=== PATIENT | male | born 2005 | race Caucasian/White ===

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

== ENCOUNTER 2024-01-05 08:45 | Outpatient (RCR) | payer BC, SELFPAY | END 2024-03-08 09:38 | disposition home or self-care (01) | PROVIDERS: Visit Provider Orthopaedic Surgery | DX: Z98.890 Other specified postprocedural states (principal); Z51.89 Encounter for other specified aftercare | CPT/HCPCS: 97110; 97112; 97116; 97140; 97161; 97530 ==

== ENCOUNTER 2024-08-08 06:42 | Day surgery (SDC) | payer BC, SELFPAY ==
--- OUTSIDE RECORDS SUMMARY | 2024-07-31 09:53 | XMS_ITS | Continuity of Care Document ---
Author Organization [facility] Address [facility] [address] [place] [address]- Care Team Providers Care Intelligence Applications Name Role Phone Lonny Sweeney MD Primary Care Physician Encounter 05/30/18 - 06/01/[address] [place], [place] [address] Encounter Diagnosis Community acquired pneumonia(Discharge Diagnosis) - 05/30/18 Attending Physician: Johan Lopes MD Allergies, Adverse Reactions, Alerts No Known Medication Allergies Assessment and Plan Extracted from: Title:cough, pna-azith Author:Marco A Lopes MD Date:05/30/18 Community acquired pneumonia (J18.9) Physical exams consistent with an atypical pneumonia. Will treat with azithromycin as below. Return to clinic if symptoms are not improving. Orders: azithromycin, See Instructions, Instructions: 11 mL Oral daily on Day 1 then 5.5 mL oral daily on Days -5, # 33 mL, 0 Refill(s), Type: Acute, Pharmacy: [id number], 11 mL Oral daily on Day 1 then 5.5 mL oral daily on Days -5, (Ordered) Immunizations Given and Recorded Vaccine Date Status Refusal Reason influenza 05/18/18 Recorded human papillomavirus vaccine 03/30/18 Given meningococcal conjugate vaccine 03/25/16 Given tetanus/diphth/pertuss (Tdap) adult/adol 03/25/16 Given influenza (LAIV) 1 04/26/12 Given influenza (LAIV) 2 04/17/10 Given influenza (LAIV) 3 04/04/09 Given influenza (LAIV) 4 04/10/08 Given influenza, H1N1, inactivated 5 07/09/09 Given DTaP 6 04/04/09 Given DTaP 07/01/05 Recorded DTaP 04 Recorded DTaP 04 Recorded DTaP 04 Recorded IPV 7 04/04/09 Given IPV 04 Recorded IPV 04 Recorded IPV 04 Recorded MMR (measles/mumps/rubella) 8 04/04/09 Given MMR (measles/mumps/rubella) 07/01/05 Recorded varicella 9 04/10/08 Given varicella 03/30/05 Recorded influenza virus vaccine, inactivated 10 06/25/07 G iven Hep A, pediatric/adolescent 11 06/25/07 Given Hep A, pediatric/adolescent 12 03/29/06 Given Hib (HbOC) 03/30/05 Recorded Hib (HbOC) 04 Recorded Hib (HbOC) 04 Recorded Hep B 03/30/05 Recorded Hep B 04 Recorded Hep B 04 Recorded pneumococcal (PCV7) 03/30/05 Recorded pneumococcal (PCV7) 04 Recorded pneumococcal (PCV7) 04 Recorded pneumococcal (PCV7) 04 Recorded 1Result Comment: Unknown Unit of Measure: UNKNOWNUNIT 2Result Comment: Unknown Unit of Measure: UNKNOWNUNIT 3Result Comment: Unknown Unit of Measure: UNKNOWNUNIT 4Result Comment: Unknown Unit of Measure: UNKNOWNUNIT 5Result Comment: Unknown Unit of Measure: UNKNOWNUNIT 6Result Comment: Unknown Unit of Measure: UNKNOWNUNIT 7Result Comment: Unknown Unit of Measure: UNKNOWNUNIT 8Result Comment: Unknown Unit of Measure: UNKNOWNUNIT 9Result Comment: Unknown Unit of Measure: UNKNOWNUNIT 10Result Comment: Unknown Unit of Measure: UNKNOWNUNIT 11Result Comment: Unknown Unit of Measure: UNKNOWNUNIT 12Result Comment: Unknown Unit of Measure: UNKNOWNUNIT Medications azithromycin 200 mg/5 mL oral liquid See Instructions, Instructions: 11 mL Oral daily on Day 1 then 5.5 mL oral daily on Days -5, # 33 mL, 0 Refill(s), Type: Acute, Pharmacy: [id number], 11 mL Oral daily on Day 1 then 5.5 mL oral daily on Days -5 Start Date: 05/30/18 Stop Date: 06/04/18 Status: Ordered Problem List Diagnosis Diagnosis Type Effective Dates Health Status Cl inical Service Informant Community acquired pneumonia Discharge Diagnosis 05/30/18 Procedures Procedure Date Related Diagnosis Body Site Status Adenoidectomy Completed Vital Signs Most recent to oldest [Reference Range]: 1 Weight Measured 94.4 lb (05/30/18 9:38 AM) Temperature Temporal [96.8-100.4 DegF] 9 8.4 DegF (05/30/18 9:38 AM) Apical Heart Rate [55-90 bpm] 79 bpm (05/30/18 9:38 AM) Oxygen Saturation [94-100 %] 97 % (05/30/18 9:38 AM) Allergies Verified? Yes (05/30/18 9:38 AM) Medication History Verified? Yes (05/30/18 9:38 AM) Social History Social History Type Response Smoking Status Never smoker; Concer ns about tobacco use in household: No entered on: 06/08/16
--- OUTSIDE RECORDS SUMMARY | 2024-07-31 09:53 | XMS_ITS | Continuity of Care Document ---
Author Organization [facility] Address [address] [place] [address]- Care Team Providers Care Field Operations Farm Manager Name Role Phone Johan Lopes MD Primary Care Physician Encounter 10/05/23 - 10/07/[address] [place], [place] [address] Encounter Diagnosis Ankle fracture, right(Discharge Diagnosis) - 10/05/23 Preop examination(Discharge Diagnosis) - 10/05/23 Factor V Leiden(Discharge Diagnosis) - 10/05/23 Attending Physician: Del Toscano MD Referring Physician: Del Toscano MD Allergies, Adverse Reactions, Alerts Substance Criticality Severity Reaction Reaction Severity Status penicillin High criticality Moderate rash Ac tive Immunizations Given and Recorded Vaccine Date Status Refusal Reason meningococcal group B vaccine 10/02/20 Given meningococcal conjugate vaccine 10/02/20 Given meningococcal conjugate vaccine 03/25/16 Given human papillomavirus vaccine 04/03/19 Given human papillomavirus vaccine 03/30/18 Given influenza 05/18/18 Recorded influenza 07/01/05 Recorded influenza 05/25/05 Recorded tetanus/diphth/pertuss (Tdap) adult/adol 03/25/16 Given tetanus/diphth/pertuss (Tdap) adult/adol 06/21/15 Recorded influenza (LAIV) 06/25/15 Recorded influenza (LAIV) 1 04/26/12 Given influenza (LAIV) 2 04/17/10 Given influenza (LAIV) 3 04/04/09 Given influenza (LAIV) 4 04/10/08 Given influenza, H1N1, inactivated 08/30/09 Recorded influenza, H1N1, inactivated 5 07/09/09 Given DTaP [...] Given Hep A, pediatric/adolescent 12 03/29/06 Given Hep B 03/30/05 Recorded Hep B 04 Recorded Hep B 04 Recorded Hib (HbOC) 03/30/05 Recorded Hib (HbOC) 04 Recorded Hib (HbOC) 04 Recorded pneumococcal (PCV7) 03/30/05 Recorded pneumococcal [...] Comment: Unknown Unit of Measure: UNKNOWNUNIT Medications diclofenac sodium 75 mg oral delayed release tablet = 1 tab(s) ( 75 mg ), Oral, bid, # 180 tab(s), 0 Refill(s), Type: Maintenance Start Date: 10/05/23 Status: Ordered Problem List Condition Confirmation Course Effective Dates Status Health St atus Informant Factor V Leiden Confirmed Active Diagnosis Diagnosis Type Effective Dates Health Status Clinical Service Informant Ankle fracture, right Discharge Diagnosis 10/05/23 Non-Specified Preop examination Discharge Diagnosis 10/05/23 Non-Specified Factor V Leiden Discharge Diagnosis 10/05/23 Non-Specified Procedures Procedure Date Related Diagnosis Body Site Status Adenoidectomy Completed Vital Signs Most recent to oldest [Reference Range]: 1 Height Measured 72.75 in (10/05/23 2:24 PM) Weight Measured 199.2 lb (10/05/23 2:24 PM) Body Mass Index 26.46 kg/m2 (10/05/23 2:24 PM) BSA 2.15 m2 (10/05/23 2:24 PM) Blood Pressure [90-120/60-80 mmHg] 122/6 4mmHg *HI* (10/05/23 2:24 PM) Mean Arterial Pressure 83 mmHg (10/05/23 2:24 PM) Allergies Verified? Yes (10/05/23 2:24 PM) Medication History Verified? Yes (10/05/23 2:24 PM) Weight Percentile 100.00 % 1 (10/05/23 2:24 PM) Weight Z-score 4.12 2 (10/05/23 2:24 PM) Height/Length Percentile 0.00 % 3 (10/05/23 2:24 PM) Height/Length Z-score -13.59 4 (10/05/23 2:24 PM) Body Mass Index Percentile 83.70 % 5 (10/05/23 2:24 PM) Body Mass Index Z-score 0.98 6 (10/05/23 2:24 PM) 1Result Comment: ^~:!Percentile Source -CDC 2Result Comment: ^~:!ZScore Source -CDC 3Result Comment: ^~:!Percentile Source -CDC 4Result Comment: ^~:!ZScore Source -CDC 5Result Comment: ^~:!Percentile Source -CDC 6Result Comment: ^~:!ZScore Source -CDC Social History Social History Type Response Smoking Status Never (less than 100 in lifetime) entered on: 03/30/23 Sex Male Pediatrics Note * Del Toscano MD: PERFORM Event Display: Pediatrics Note Authored Date: [id number] CYNTHIA CALLOWAY Address: [address] [place] [address] [address] [place] [address] Phone:[phone] Sex:Male :[address] [facility]:[id number] Location:[facility] Date of Service:10/05/2023 PCP: Johan Lopes MD ?? PreOperative Physical and Clearance ?? Accompanied by??mom ?? Diagnosis: Right Ankle fracture Planned Procedure: repair Hospital/Location: [facility] Date of Surgery: 07 Oct 2023 Surgeon:??Jacinto ?? Cynthia is a 18, with a history of an injury to his ankle resulting in fracture. ?? The patient has??a history of anesthesia.??Prior??adenoidectomy ?? Allergies and medications are noted below. Past medical history is noted. ??Specifically there is?? no ??history of repiratory issues.? no history of bleeding issues. HAS DIAGNOSIS OF FACTOR V LEIDEN no??history of cardiac issues.? There is??no family history of anesthesia problems, specifically?? no??history of malignant hyperthermia. ? Procedure historyProcedures ?Adenoidectomy? Any positive review of systems is??indicated above, otherwise it is negativeAllergies ?penicillin ? Severity: Moderate?Medications?*denotes recorded medication ?*diclofenac sodium 75 mg oral delayed release tablet: 75 mg, 1 tab(s), Oral, bid, 180 tab(s), 0 Refill(s). ? Problem List?Factor V Leiden? Past med history??Blood disorder Migraine??Family History ?Allergy (Grandmother (M)) ?Allergy (Mother) ?Bleeding disorder (Grandmother (M)) ?Bleeding disorder (Mother) ?Depression (Grandmother (P)) ?Depression (Sister) ?Diabetes mellitus type 1 (Grandmother (P)) ?Diabetes.. (Grandfather (M)) ?High blood pressure (Mother) ?High blood pressure (Grandmother (M)) ?High blood pressure (Grandfather (M)) ?High cholesterol (Grandfather (M)) ?Migraine (Grandmother (M)) ?Migraine (Mother) ? Social history? Electronic Cigarette/Vaping Assessment ? Electronic Cigarette Use: Never. ? Tobacco Assessment ? Never (less than 100 in lifetime) ? Home and Environment Assessment ? Living situation: adequate housing-yes. ??Alcohol abuse in household: No. ??Substance abuse in household: No. ?Smoker in household: No. ??Feels unsafe at home: No. ? Nutrition and Health Assessment ? Obtaining food is a problem: No. ? Other Assessment ? well and reverse osmosis water source, no fluoride supplement? Exam Vital signs??:?Vital Signs ?BP:?H 122/64?Measurements:?Height: 72.75 in?Weight: 199.2 lb?BMI: 26.46?BSA: 2.15? Alert.?? Interactive. Eyes normal Nose normal Mouth clear Heart normal Lungs??clear ? Review and ResultsResults??(Last 30 days) No results located.? Impression and Plan ?? Preop Examination and Clearance -Low risk for anesthesia complication -Cleared per day of procedure evaluation by anesthesia team ?? Diagnosis for this visit ?Ankle fracture, right (S82.891A) ?Preop examination (Z01.818) ?Factor V Leiden (D68.51) ? Lab testing??not needed no significant changes ?? The visit and interview was conducted with the patient and the Patient???s mother. ?? Patient and parental questions addressed as able. ?? Electronically Signed on 10/05/2023 02:37 PM Del Toscano MD Patient Care team information Care Team Personnel Name: Johan Lopes MD Position: EMR Provider Access (Peds) Member Role: Primary Care Physician Address: Address: [address] P: F: [place] [address]- [place] Family History Name: UnknownRelationship: Mother Condition State Severity Life Cycle Status Age at Onset Allergy POSITIVE High blood pressure POSITIVE Migraine POSITIVE Bleeding disorder POSITIVE Name: UnknownRelationship: Sister Condition State Severity Life Cycle Status Age at Onset Depression POSITIVE Name: UnknownRelationship: Grandmother (M) Condition State Severity Life Cycle Status Age at Onset Migraine POSITIVE Allergy POSITIVE Bleeding disorder POSITIVE High blood pressure POSITIVE Name: UnknownRelationship: Grandfather (M) Condition State Severity Life Cycle Status Age at Onset High blood pressure POSITIVE Diabetes.. POSITIVE High cholesterol POSITIVE Name: UnknownRelationship: Grandmother (P) Condition State Severity Life Cycle Status Age at Onset Diabetes mellitus type 1 POSITIVE Depression POSITIVE
--- OUTSIDE RECORDS SUMMARY | 2024-07-31 09:53 | XMS_ITS | Continuity of Care Document ---
Author Organization [facility] Address [facility] [address] [place] [address]- Care Team Providers Care Automotive Glass Technician Name Role Phone Johan Lopes MD Primary Care Physician Encounter 04/03/19 - 04/05/[address] [place], [place] [address] Encounter Diagnosis Well child check(Discharge Diagnosis) - 04/03/19 Immunization due(Discharge Diagnosis) - 04/03/19 Depression screen(Discharge Diagnosis) - 04/03/19 Body mass index 5th to < 85th percentile, pediatric(Discharge Diagnosis) - 04/03/19 Slow height gain(Discharge Diagnosis) - 04/03/19 Attending Physician: Johan Lopes MD Allergies, Adverse Reactions, Alerts No Known Medication Allergies Assessment and Plan Extracted from: Title:14yr [facility] Author:Johan Lopes MD Date: 04/03/19 Impression and Plan Patient is a 14-year-old male who presents to clinic for a well-child check. Patient continues to have slow growth velocity. Last year, bone age was demonstrated to be delayed. Growth projection with corrected bone age predicted the patient would be at the 50th percentile for height. Patient has not yet started his growth spurt. As a result, we will investigate further with growth hormone levels, TSH, ESR, and celiac screen. Diagnosis Immunization due (WFC88-XX Z23). Body mass index 5th to < 85th percentile, pediatric (ZXX83-KH Z68.52). Slow height gain (NJL92-LE R62.52). Well child check (TGK75-YI Z00.129). Depression screen (NRN89-MP Z13.31). Course: Progressing as expected. Plan: Referral to dentist., Recheck in 1 year for well check., Discussed recommended vaccines with parent/patient including HPV, including benefits and possible side effects, VIS offered. Diet: Age appropriate diet, BMI discussed. Counseled on healthy diet and physical activity recommendations.. Course: Progressing as expected. Anticipatory Guidance: Adolescence (11 - 21 years): Hobbies, Peer relations, School performance, Substance abuse, Sports injuries, Seatbelts/ airbags, Nutrition/ oral health ( Balanced meals, Nutritious snacks ). Immunizations Given and Recorded Vaccine Date Status Refusal Reason human papillomavirus vaccine 04/03/19 Given human papillomavirus vaccine 03/30/18 Given influenza 05/18/18 Recorded meningococcal conjugate vaccine 03/25/16 Given tetanus/diphth/pertuss (Tdap) [...] Given Hep A, pediatric/adolescent 12 03/29/06 Given pneumococcal (PCV7) 03/30/05 Recorded pneumococcal (PCV7) 04 Recorded pneumococcal (PCV7) 04 Recorded pneumococcal (PCV7) 04 Recorded Hep B 03/30/05 Recorded Hep B 04 Recorded Hep B 04 Recorded Hib (HbOC) 03/30/05 Recorded Hib (HbOC) 04 Recorded Hib (HbOC) 04 Recorded 1Result Comment: Unknown Unit of [...] 12Result Comment: Unknown Unit of Measure: UNKNOWNUNIT Problem List Diagnosis Diagnosis Type Effective Dates Health Status Clinical Service Informant Immunization due Discharge Diagnosis 04/03/19 Body mass index 5th to < 85th percentile, pediatric Discharge Diagnosis 04/03/19 Slow height gain Discharge Diagnosis 04/03/19 Well child check Discharge Diagnosis 04/03/19 Depression screen Discharge Diagnosis 04/03/19 Procedures Procedure Date Related Diagnosis Body Site Status Collection of venous blood b y venipuncture 04/03/19 Completed Adenoidectomy Completed Results Most recent to oldest [Reference Range]: 1 TSH+Free T4 Reference Lab (04/03/19 4:28 PM) IGF-1 Reference Lab (04/03/19 4:28 PM) IGF-BP3 Reference Lab (04/03/19 4:28 PM) Sed Rate [0-20 mm] 1 mm (04/03/19 4:28 PM) Celiac Ped Screen w Reflex Reference Lab (04/03/19 4:28 PM) Vital Signs Most recent to oldest [Reference Range]: 1 Height Measured 62.25 in (04/03/19 3:59 PM) Weight Measured 108.2 lb (04/03/19 3:59 PM) Body Mass Index 19.63 kg/m2 (04/03/19 3:59 PM) BSA 1.47 m2 (04/03/19 3:59 PM) Blood Pressure [90-138/45-84 mmHg] 111/7 0mmHg (04/03/19 3:59 PM) Mean Arterial Pressure 84 mmHg (04/03/19 3:59 PM) Allergies Verified? Yes (04/03/19 3:59 PM) Medication History Verified? Yes (8/26/19 3:59 PM) Social History Social History Type Response Smoking Status Never (less than 100 in lifetime); Concerns about tobacco use in household: No entered on: 04/03/19
--- OUTSIDE RECORDS SUMMARY | 2024-07-31 09:54 | XMS_ITS | Continuity of Care Document ---
Author Organization [facility] Address [facility] [address] [place] [address]- Care Team Providers Care Media Senior Recruiter Name Role Phone Lonny Sweeney MD Primary Care Physician Encounter 06/08/18 - 06/10/[address] [place], [place] [address] Encounter Diagnosis Community acquired pneumonia(Discharge Diagnosis) - 06/10/18 Attending Physician: Johan Lopes MD Allergies, Adverse Reactions, Alerts No Known Medication Allergies Assessment and Plan Extracted from: Title:Improving pna Author:Johan Lopes MD ate:06/08/18 Community acquired pneumonia (J18.9) Respiratory exam is stable, clear and is consistent with an improving pneumonia. Advised treating with humidified air, warm liquids, and honey. Advise azithromycin will remain effective for a full 10 days. Return to clinic if symptoms are not improving in 5-7 days or sooner if they worsen. Immunizations Given and Recorded Vaccine Date Status [...] Service Informant Community acquired pneumonia Discharge Diagnosis 06/10/18 Procedures Procedure Date Related Diagnosis Body Site Status Adenoidectomy Completed Vital Signs Most recent to oldest [Reference Range]: 1 Temperature Temporal [96.8-100.4 DegF] 9 7.4 DegF (06/08/18 4:03 PM) Oxygen Saturation [94-100 %] 97 % (06/08/18 4:03 PM) Allergies Verified? Yes (06/08/18 4:03 PM) Social History Social History Type Response Smoking Status Never smoker; Concer ns about tobacco use in household: No entered on: 06/08/16
--- OUTSIDE RECORDS SUMMARY | 2024-07-31 09:54 | XMS_ITS | Continuity of Care Document ---
Author Organization [facility] Address [facility] [address] [place] [address]- Care Team Providers Care Polygraph Technician Name Role Phone Lonny Sweeney MD Primary Care Physician [phone] Encounter 06/08/18 - 06/10/[address] [place], [place] [address] Encounter Diagnosis Community acquired pneumonia(Discharge Diagnosis) - [...]
--- OUTSIDE RECORDS SUMMARY | 2024-07-31 09:54 | XMS_ITS | Continuity of Care Document ---
Author Organization [facility] Address [facility] [address] [place] [address]- Care Team Providers Care Prison Teacher Name Role Phone Johan Lopes MD Primary Care Physician Encounter 08/08/20 - 08/10/[address] [place], [place] [address] Encounter Diagnosis WCC (well child check)(Discharge Diagnosis) - 08/08/20 Immunization due(Discharge Diagnosis) - 08/08/20 Depression screen(Discharge Diagnosis) - 08/08/20 Attending Physician: Ken Valdez MD Referring Physician: Ken Valdez MD Allergies, Adverse Reactions, Alerts No Known Medication Allergies Assessment and Plan Extracted from: Title:15 year well. Author:Ken Valdez MD Kenrick e:08/08/20 1. WCC (well child check) (Z00.129) Anticipatory guidance: BMI reviewed. Reviewed healthful diet to include dairy, meat, fruits and vegetables. Reinforced health benefits of physical activity. Addressed healthful sleep habits. Addressed digestive health. Follow up with Dentistry. Return for yearly well exam. Ordered: 23650 screening test pure tone air only (Charge), Quantity: 1, WCC (well child check) 62021 periodic preventive med est patient 12-17yrs (Charge), Quantity: 1, WCC (well child check) Immunization due Depression screen 2. Immunization due (Z23) return for menactra and men B Ordered: 32868 periodic preventive med est patient 12-17yrs (Charge), Quantity: 1, WCC (well child check) Immunization due Depression screen Miscellaneous Order (Request), FUTURE ORDER return for menactra and men B 3. Depression screen (Z13.31) Reviewed screening results. No additional needs identified. Ordered: 80307 behav assmt w/score & docd/stand instrument (Charge), Quantity: 1, Depression screen 31768 periodic preventive med est patient 12-17yrs (Charge), Quantity: 1, WCC (well child check) Immunization due Depression screen Functional Status 08/08/20 Recent Travel History No recent travel Family Member Travel History No recent t ravel Other Exposure to Infectious Disease Unk nown Immunizations Given and Recorded Vaccine Date Status [...] Clinical Service Informant Immunization due Discharge Diagnosis 08/08/20 WCC (well child check) Discharge Diagnosis 08/08/20 Depression screen Discharge Diagnosis 08/08/20 Procedures Procedure Date Related Diagnosis Body Site Status Adenoidectomy Completed Vital Signs Most recent to oldest [Reference Range]: 1 Height Measured 67.75 in (08/08/20 2:35 PM) Weight Measured 139.2 lb (08/08/20 2:35 PM) Body Mass Index 21.32 kg/m2 (08/08/20 2:35 PM) BSA 1.74 m2 (08/08/20 2:35 PM) Blood Pressure [90-138/45-84 mmHg] 118/7 0mmHg (08/08/20 2:35 PM) Mean Arterial Pressure 86 mmHg (08/08/20 2:35 PM) Allergies Verified? Yes (08/08/20 2:35 PM) Medication History Verified? Yes (08/08/20 2:35 PM) Medical History Verified? Yes (08/08/20 2:35 PM) Social History Social History Type Response Smoking Status Never (less than 100 in lifetime) entered on: 08/08/20 Sex Male
--- OUTSIDE RECORDS SUMMARY | 2024-07-31 09:54 | XMS_ITS | Continuity of Care Document ---
Author Organization [facility] Address [address] [place] [address]- Care Team Providers Care Laborer Hide House Name Role Phone Johan Lopes MD Primary Care Physician Encounter 10/02/20 - 10/04/[address] [place], [place] [address] Encounter Diagnosis Immunization due(Discharge Diagnosis) - 10/02/20 Attending Physician: Johan Lopes MD Referring Physician: Johan Lopes MD Allergies, Adverse Reactions, Alerts No Known Medication Allergies Immunizations Given and Recorded Vaccine Date Status Refusal Reason meningococcal group B vaccine 10/02/20 Given meningococcal conjugate vaccine 10/02/20 Given meningococcal conjugate vaccine 03/25/16 Given human papillomavirus vaccine 04/03/19 Given human papillomavirus vaccine 03/30/18 Given influenza 05/18/18 Recorded tetanus/diphth/pertuss (Tdap) adult/adol 03/25/16 Given influenza (LAIV) [...] Clinical Service Informant Immunization due Discharge Diagnosis 10/02/20 Procedures Procedure Date Related Diagnosis Body Site Status Adenoidectomy Completed Social History Social History Type Response Smoking Status Never (less than 100 in lifetime) entered on: 08/08/20 Sex Male
--- OUTSIDE RECORDS SUMMARY | 2024-07-31 09:54 | XMS_ITS | Continuity of Care Document ---
Author Organization [facility] Address [address] [place] [address]- Care Team Providers Care Kitman Name Role Phone Lonny Sweeney MD Primary Care Physician Encounter(s) 03/30/18 [facility] [address] [facility]. [address] [place], [place] [address] Encounter Diagnosis Immunization due(Discharge Diagnosis) - 03/30/18 WCC (well child check)(Discharge Diagnosis) - 03/30/18 Body mass index 5th to < 85th percentile, pediatric(Discharge Diagnosis) - 03/30/18 Depression screen(Discharge Diagnosis) - 03/30/18 Attending Physician: Johan Lopes MD 07/20/17 - 07/22/17 [facility] [address] [facility] [address] [place], [place] [address] Encounter Diagnosis Cough(Discharge Diagnosis) - 07/20/17 Attending Physician: Carmen Daniel MD Allergies, Adverse Reactions, Alerts No Known Medication Allergies Assessment and Plan Extracted from: Title:cough Author:Carmen Daniel MD Date:09/20/16 1. Cough Discussed the differential diagnosis of a prolonged cough without other significant symptoms, which can include a series of intercurrent viral URIs, secondary bacterial infection, (OM or sinusitis) or bronchospasm. Additional causes include allergy or GERD Treatment discussed RTC PRN any constitutional symptoms (fever, malaise, night sweats or weight loss) for further evaluation Extracted from: Title:viral uri, cough Author:Marco A Lopes MD Date:06/08/16 Viral upper respiratory infe ction Cough and congestion are consistent with a viral upper respiratory infection. No evidence of acute otitis media or pneumonia noted on physical exam. Plan: Honey, humidified air for cough. May use acetaminophen or ibuprofen for elevated temperatures and discomfort. Return to clinic if patient develops persistent cough or fevers. Extracted from: Title:AAA 10-12 year [facility] Author:Avery Sweeney MD Date:03/25/16 Impression and Plan Diagnosis Well child check (UKP04-KN Z00.129). Plan: Immunizations per schedule. Diet: Age appropriate diet, Referral to dentist, Discussed activity, screen time, sleep and good nutrition. Discussed importance of these relative to patient's BMI., Discussed puberty and growth., Regular Dental visits recommended.. Immunizations Given and Recorded Vaccine Date Status Refusal Reason meningococcal conjugate vaccine 03/25/16 Given tetanus/diphth/pertuss (Tdap) [...] Effective Dates Health Status Clinical Service Informant Well child check Discharge Diagnosis 03/25/16 Non-Specified Well child check Discharge Diagnosis 03/25/16 Immunization due Discharge Diagnosis 03/25/16 Body mass index 5th to < 85th percentile, pediatric Discharge Diagnosis 03/25/16 Cough Discharge Diagnosis 07/03/16 Non-Specified Sinusitis Discharge Diagnosis 07/03/16 Non-Specified Depression screen Discharge Diagnosis 03/30/18 WCC (well child check) Discharge Diagnosis 03/30/18 Immunization due Discharge Diagnosis 03/30/18 Body mass index 5th to < 85th percentile, pediatric Discharge Diagnosis 03/30/18 Viral upper respiratory infection Discharge Diagnosis 06/08/16 Cough Discharge Diagnosis 07/20/17 Routine child exam Discharge Diagnosis 04/03/14 Procedures Procedure Date Related Diagnosis Body Site Status Adenoidectomy Completed Vital Signs Most recent to oldest [Reference Range]: 1 2 3 Height Measured 60.25 in (03/30/18 2:06 PM) 59.5 in (07/20/17 8:58 AM) 57 in (06/08/16 3:59 PM) Weight Measured 97.2 lb (03/30/18 2:06 PM) 93.2 lb (07/20/17 8:58 AM) 79.2 lb (06/08/16 3:59 PM) Body Mass Index 18.82 kg/m2 (03/30/18 2:06 PM) 18.51 kg/m2 (07/20/17 8:58 AM) 17.14 kg/m2 (06/08/16 3:59 PM) BSA 1.37 m2 (03/30/18 2:06 PM) 1.33 m2 (07/20/17 8:58 AM) 1.2 m2 (06/08/16 3:59 PM) Temperature Temporal [96.8-100.4 DegF] 98.3 DegF (07/03/16 11:01 AM) Blood Pressure [90-138/45-84 mmHg] 108/72mmHg (03/30/18 2:06 PM) Blood Pressure [77-126/40-81 mmHg] 118/74mmHg (03/25/16 1:36 PM) 103/63mmHg (04/03/14 2:05 PM) Mean Arterial Pressure 84 mmHg (03/30/18 2:06 PM) 89 mmHg (03/25/16 1:36 PM) 76 mmHg (04/03/14 2:05 PM) Peripheral Pulse Rate [55-90 bpm] 71 bpm (03/30/18 2:06 PM) 78 bpm (04/03/14 2:05 PM) Oxygen Saturation [94-100 %] 97 % (07/20/17 8:58 AM) 97 % (07/03/16 11:01 AM) 98 % (06/08/16 3:59 PM) Allergies Verified? Yes (03/30/18 2:06 PM) Yes (07/20/17 8:58 AM) Yes (03/25/16 1:36 PM) Medication History Verified? Yes (03/30/18 2:06 PM) Yes (07/20/17 8:58 AM) Yes (03/25/16 1:36 PM) Social History Social History Type Response Smoking Status Never smoker; Concer ns about tobacco use in household: No entered on: 06/08/16
--- OUTSIDE RECORDS SUMMARY | 2024-07-31 09:54 | XMS_ITS | Continuity of Care Document ---
Author Organization [facility] Address [facility] [address] [place] [address]- Care Team Providers Care Truck Rental Manager Name Role Phone Lonny Sweeney MD Primary Care Physician Encounter 03/30/18 - 04/01/[address] [place], [place] [address] Encounter Diagnosis Immunization due(Discharge Diagnosis) - 03/30/18 WCC (well child check)(Discharge Diagnosis) - 03/30/18 Body mass index 5th to < 85th percentile, pediatric(Discharge Diagnosis) - 03/30/18 Depression screen(Discharge Diagnosis) - 03/30/18 Delayed linear growth(Discharge Diagnosis) - 03/30/18 Attending Physician: Johan Lopes MD Allergies, Adverse Reactions, Alerts No Known Medication Allergies Assessment and Plan Extracted from: Title:13yr WCC, slow growth Author:Johan Lopes MD Date:03/30/18 Impression and Plan Patient is in the 9th percentile for growth. Mean parental height estimation falls on the 75th percentile. Given discordance, will obtain a bone age. Diagnosis Immunization due (MJJ24-GN Z23). WCC (well child check) (DAQ38-TY Z00.129). Body mass index 5th to < 85th percentile, pediatric (BSQ92-LG Z68.52). Depression screen (SLQ24-HF Z13.89). Delayed linear growth (ISV20-YG R62.52). Course: Progressing as expected. Plan: Referral to dentist., Recheck in 1 year for well check., Discussed recommended vaccines with parent/patient including HPV, including benefits and possible side effects, VIS offered. Diet: Age appropriate diet, BMI discussed. Counseled on healthy diet and physical activity recommendations.. Course: Progressing as expected. Anticipatory Guidance: Adolescence (11 - 21 years): Hobbies, Peer relations, School performance, Sports injuries, Seatbelts/ airbags, Nutrition/ oral health ( Balanced meals, Nutritious snacks ). Immunizations Given and Recorded Vaccine Date Status Refusal Reason human papillomavirus vaccine 03/30/18 Given meningococcal conjugate [...] Effective Dates Health Status Clinical Service Informant Delayed linear growth Discharge Diagnosis 03/30/18 Depression screen Discharge Diagnosis 03/30/18 WCC (well child check) Discharge Diagnosis 03/30/18 Immunization due Discharge Diagnosis 03/30/18 Body mass index 5th to < 85th percentile, pediatric Discharge Diagnosis 03/30/18 Procedures Procedure Date Related Diagnosis Body Site Status Adenoidectomy Completed Vital Signs Most recent to oldest [Reference Range]: 1 Height Measured 60.25 in (03/30/18 2:06 PM) Weight Measured 97.2 lb (03/30/18 2:06 PM) Body Mass Index 18.82 kg/m2 (03/30/18 2:06 PM) BSA 1.37 m2 (03/30/18 2:06 PM) Blood Pressure [90-138/45-84 mmHg] 108/7 2mmHg (03/30/18 2:06 PM) Mean Arterial Pressure 84 mmHg (03/30/18 2:06 PM) Peripheral Pulse Rate [55-90 bpm] 71 bpm (03/30/18 2:06 PM) Allergies Verified? Yes (03/30/18 2:06 PM) Medication History Verified? Yes (03/30/18 2:06 PM) Social History Social History Type Response Smoking Status Never smoker; Concer ns about tobacco use in household: No entered on: 06/08/16
--- OUTSIDE RECORDS SUMMARY | 2024-07-31 09:54 | XMS_ITS | Continuity of Care Document ---
Author Organization [facility] Address [id number] [place] [address]- Care Team Providers Care Manufacturer Representative Name Role Phone Lonny Sweeney MD Primary Care Physician Encounter 10/14/18 - 10/16/[address] [place], [place] [address] Encounter Diagnosis Sorethroat(Discharge Diagnosis) - 10/14/18 Allergies, Adverse Reactions, Alerts No Known Medication [...] Comment: Unknown Unit of Measure: UNKNOWNUNIT Medications amoxicillin 400 mg/5 mL oral liquid = 15 mL ( 1,200 mg ), po, daily, x 10 day(s), # 150 mL, 0 Refill(s), Type: Acute, Pharmacy: [id number], 15 mL Oral daily,x10 day(s) Start Date: 10/15/18 Stop Date: 10/25/18 Status: Ordered Problem List Diagnosis Diagnosis Type Effective Dates Health Status Clini diana Service Informant Sorethroat Discharge Diagnosis 10/14/18 Procedures Procedure Date Related Diagnosis Body Site Status Adenoidectomy Completed Results Most recent to oldest [Reference Range]: 1 Culture Throat Presum Pos GABS *ABN* (10/14/18 9:51 AM) Strep ID [Negative] Negative (10/14/18 9:51 AM) Vital Signs Most recent to oldest [Reference Range]: 1 Weight Measured 93.8 lb (10/14/18 9:37 AM) Allergies Verified? Yes (10/14/18 9:40 AM) Social History Social History Type Response Smoking Status Never smoker; Concer ns about tobacco use in household: No entered on: 06/08/16
--- OUTSIDE RECORDS SUMMARY | 2024-07-31 09:54 | XMS_ITS | Continuity of Care Document ---
Author Organization [facility] Address [address] [place] [address]- Care Team Providers Care Recycler Forklift Driver Truck Driver Name Role Phone Johan Lopes MD Primary Care Physician Encounter 10/05/23 - 10/07/[address] [place], [place] [address] Encounter Diagnosis Ankle fracture, right(Discharge Diagnosis) [...] PERFORM Event Display: Pediatrics Note Authored Date: [id number] CYNTHIA CALLOWAY Address: [address] [place] [address] [facility] [place] [address] Phone:[phone] Sex:Male :2005 [facility]AD[facility]:[id number] Location:[facility] Date of Service:10/05/2023 PCP: Johan Lopes MD ?? PreOperative Physical and Clearance ?? Accompanied by??mom ?? Diagnosis: Right Ankle fracture Planned Procedure: repair Hospital/Location: [facility] Date of Surgery: 07 Oct 2023 [...] Member Role: Primary Care Physician Address: Address: [address] P: [place]: [place] [address]- [place] Family History Name: UnknownRelationship: Mother Condition State Severity Life Cycle Status Age at Onset High blood pressure POSITIVE Bleeding disorder POSITIVE Allergy POSITIVE Migraine POSITIVE Name: UnknownRelationship: Sister Condition State Severity Life Cycle Status Age at Onset Depression POSITIVE Name: UnknownRelationship: Grandmother (M) Condition State Severity Life Cycle Status Age at Onset Allergy POSITIVE High blood pressure POSITIVE Bleeding disorder POSITIVE Migraine POSITIVE Name: UnknownRelationship: Grandfather (M) Condition State Severity Life Cycle Status Age at Onset High blood pressure POSITIVE High cholesterol POSITIVE Diabetes.. POSITIVE Name: UnknownRelationship: Grandmother (P) Condition State Severity Life Cycle Status Age at Onset Diabetes mellitus type 1 POSITIVE Depression POSITIVE
--- OUTSIDE RECORDS SUMMARY | 2024-07-31 09:54 | XMS_ITS | Continuity of Care Document ---
Author Organization [facility] Address [facility] [address] [place] [address]- Care Team Providers Care Dispensary Technician Name Role Phone Johan Lopes MD Primary Care Physician Encounter 03/30/23 - 04/01/23 [facility] [address] [facility]. [address] [place] [address]- Encounter Diagnosis Pharyngitis(Discharge Diagnosis) - 03/30/23 Attending Physician: Rupinder Gordillo MD Referring Physician: Rupinder Gordillo MD Allergies, Adverse Reactions, Alerts Substance Reaction Severity Status penicillin rash Moderate Active Assessment and Plan Extracted from: Title:Pharyngitis, rapid strep negative Author:Rupinder Resendez MD Date:03/30/23 1. Pharyngitis (J02.9) Rapid strep negative. Advised family that if PCR positive, will call, plan for cefprozil 250 mg tablet 1.5 tabs PO BID x 10 days. If negative, most likely viral etiology, exam reassuring against dehydration. Recommended symptomatic management including acetaminophen/ibuprofen for fever or discomfort as appropriate for age, encouraging fluid intake and rest. If throat sore, can use honey or cool beverages. Discussed reasons to return to care including inability to keep self hydrated, increased work of breathing, daily fever lasting >4-5 days, or development of new and concerning symptoms. Parent expressed agreement with this plan. Ordered: .Streptococcus Group A PCR, Specimen Type: Throat, Collected, 03/30/23 14:36:00 CDT by Rupinder Gordillo MD, Routine collect, Lab Collect, Pharyngitis [id number] office o/p est low 20-29 min (Charge), Quantity: 1, Pharyngitis Strep A Screen (SPA), Specimen Type: Throat, 03/30/23 14:36:00 CDT by Duy DE LA FUENTE, Rupinder Arellano, Routine collect, Lab Collect, Pharyngitis Immunizations Given and Recorded Vaccine Date Status [...] Dates Health Status Clini diana Service Informant Pharyngitis Discharge Diagnosis 03/30/23 Non-Specified Procedures Procedure Date Related Diagnosis Body Site Status Adenoidectomy Completed Results Laboratory List Name Date Strep A Screen (SPA) 03/30/23 .Streptococcus Group A PCR 03/30/23 Most recent to oldest [Reference Range]: 1 Strep A Screen [Negative] Negative (03/30/23 2:37 PM) Strep Gp A PCR [Negative] Negative (03/30/23 2:37 PM) Strep Gp A PCR Interp Group A Streptococ cus target DNA not detected *NA* (03/30/23 2:37 PM) Vital Signs Most recent to oldest [Reference Range]: 1 Height Measured 71.25 in (03/30/23 2:20 PM) Weight Measured 191.2 lb (03/30/23 2:20 PM) Body Mass Index 26.48 kg/m2 (03/30/23 2:20 PM) BSA 2.09 m2 (03/30/23 2:20 PM) Allergies Verified? Yes (03/30/23 2:20 PM) Medication History Verified? Yes (03/30/23 2:20 PM) Weight Percentile 100.00 % 1 (03/30/23 2:20 PM) Weight Z-score 3.95 2 (03/30/23 2:20 PM) Height/Length Percentile 0.00 % 3 (03/30/23 2:20 PM) Height/Length Z-score -13.54 4 (03/30/23 2:20 PM) Body Mass Index Percentile 85.59 % 5 (03/30/23 2:20 PM) Body Mass Index Z-score 1.06 6 (03/30/23 2:20 PM) 1Result Comment: ^~:!Percentile Source -[facility] 2Result Comment: ^~:!ZScore Source -[facility] 3Result Comment: ^~:!Percentile Source -[facility] 4Result Comment: ^~:!ZScore Source [facility] 5Result Comment: ^~:!Percentile Source [facility] 6Result Comment: ^~:!ZScore Source -[facility] Social History Social History Type Response Smoking Status Never (less than 100 in lifetime) entered on: 03/30/23 Sex Male Pediatrics Note * Duy DE LA FUENTE, Rupinder Arellano: PERFORM Event Display: Pediatrics Note Authored Date: [id number] PRAVEEN CALLOWAY Address: [address] [place], [place] [id number] Phone:[phone] Sex:Male :2005 Location:[facility] [place] Date of Service:03/30/2023 PCP: Johan Lopes MD Chief Complaint Room C with mom, sore throat, headache and stomach ache History of Present Illness Praveen is a 18-year-old male who presents with his mother for evaluation of sore throat. ?? Praveen was working up in [place] and developed a sore throat yesterday. It is painful, preventing himfrom eating and drinking, and accompanied by an all- over headache. He has been nauseous, but has not vomited. Ibuprofen has improved his symptoms when he took it. Due to his discomfort and concern for strep, his mother drove up to bring him back to be tested. ?? He has no known sick contacts and no recent exposures to insects. He continues to urinate normally, he has had no rash. Review of Systems As above in HPI. Physical Exam Vitals & Measurements HT:??71.25??in?? WT:??191.2??lb?? BMI:??26.48?? General: Alert, well-appearing, normal affect. Eyes: EOMI grossly, conjunctiva clear bilaterally without drainage Ears:?? normal TMs bilaterally, normal external ears Mouth: oral mucosa moist, oropharynx mildly erythematous, tonsillar hypertrophy without exudate Neck: supple, no lymphadenopathy Lungs: clear to auscultation bilaterally Heart: regular rate and rhythm, no m/r/g Skin: no rash on exposed skin Assessment/Plan 1.??Pharyngitis??(J02.9) Rapid strep negative. Advised family that if PCR positive, will call, plan for??cefprozil??250 mg tablet 1.5 tabs PO??BID x 10 days.??If negative, most likely viral etiology, exam reassuring against dehydration. Recommended symptomatic management including acetaminophen/ibuprofen for fever or discomfort as appropriate for age, encouraging fluid intake and rest. If throat sore, can use honey or cool beverages. Discussed reasons to return to care including inability to keep self hydrated, increased work of breathing, daily fever lasting >4-5 days, or development of new and concerning symptoms. Parent expressed agreement with this plan.?? Ordered: .Streptococcus Group A PCR, Specimen Type: Throat, Collected, 03/30/23 14:36:00 CDT by Rupinder Gordillo MD, Routine collect, Lab Collect, Pharyngitis [id number] office o/p est low 20-29 min (Charge), Quantity: 1, Pharyngitis Strep A Screen (SPA), Specimen Type: Throat, 03/30/23 14:36:00 CDT by Rupinder Gordillo MD, Routine collect, Lab Collect, Pharyngitis ?? Problem List/Past Medical History Historical Blood disorder Migraine Procedure/Surgical History ???Adenoidectomy Allergies penicillin (Moderate)??rash Social History Electronic Cigarette/Vaping E-Cigarette Use:Never Home/Environment Living situation:adequate housing-yes Alcohol abuse in household:No Substance abuse in household:No Smoker in household:No Feels unsafe at home:No Nutrition/Health Obtaining food is a problem:No Other Additional information:well and reverse osmosis water source, no fluoride supplement Tobacco Use:Never (less than 100 in lifetime) Family History Allergy: Mother and Grandmother (M). Bleeding disorder: Mother and Grandmother (M). Depression: Sister and Grandmother (P). Diabetes mellitus type 1: Grandmother (P). Diabetes..: Grandfather (M). High blood pressure: Mother, Grandfather (M) and Grandmother (M). High cholesterol: Grandfather (M). Migraine: Mother and Grandmother (M). Lab Results Lab Results (Last 4 results within 60 days)?? Strep A Screen: Negative (03/30/23 14:37:00) Electronically Signed on 03/30/2023 03:46 PM Rupinder Gordillo MD Patient Care team information Care Team Personnel Name: Johan Lopes MD Position: EMR Provider Access (Peds) Member Role: Primary Care Physician Address: Address: [address] P: F: [place]EL[place] Bon[place] [address] Family History Name: UnknownRelationship: Mother Condition State Severity Life Cycle Status Age at Onset Bleeding disorder POSITIVE High blood pressure POSITIVE Allergy POSITIVE Migraine POSITIVE Name: UnknownRelationship: Sister Condition State Severity Life Cycle Status Age at Onset Depression POSITIVE Name: UnknownRelationship: Grandmother (M) Condition State Severity Life Cycle Status Age at Onset Allergy POSITIVE Bleeding disorder POSITIVE Migraine POSITIVE High blood pressure POSITIVE Name: UnknownRelationship: Grandfather (M) Condition State Severity Life Cycle Status Age at Onset High cholesterol POSITIVE Diabetes.. POSITIVE High blood pressure POSITIVE Name: UnknownRelationship: Grandmother (P) Condition State Severity Life Cycle Status Age at Onset Diabetes mellitus type 1 POSITIVE Depression POSITIVE
[2024-08-08] VITALS (8 sets, daily range): BP systolic 126–146; BP diastolic 64–83; PULSE 57–83; RESP 16; TEMP 36.7–36.8; O2SAT 98–100; BMI 25.7
[2024-08-08] MEDS: BUPIVACAINE 0.5 %/EPI 1:200K INJECTION (07:45)
[2024-08-08] MEDS: LIDOCAINE 1%-EPI 1:100,000 20 ML INFILTRATI (07:45)
--- NOTE | 2024-08-08 07:50 | CRLHL7_ITS ---
For Patients: As a result of the Century Cures Act, medical imaging exams and procedure reports are released immediately into your electronic medical record. You may view this report before your referring provider. If you have questions, please contact your health care provider. Indication: Screw removal Technique: Four fluoroscopic images of the right ankle. Fluoroscopic time 3.8 seconds. Comparison: 07/12/2024 IMPRESSION: Fluoroscopic guidance for removal of 1 of the distal fibular screws. Dictated by Dharmesh Limon MD @ 08/08/2024 12:25:12 PM (Electronically Signed)
--- NOTE | 2024-08-08 07:59 | PM.ORPRC ---
Procedure Note Date of procedure: 08/08/24 Procedure: PREOPERATIVE DIAGNOSIS: Right ankle fracture ORIF with retained hardware POSTOPERATIVE DIAGNOSIS: Right ankle fracture ORIF with retained hardware SURGEON: Wolf Casey MD GREEN CHAIN OPERATOR: VARUN Flores NAME OF OPERATION: Hardware removal deep ANESTHESIA: Local ESTIMATED BLOOD LOSS: 1 mL COMPLICATIONS: None SPECIMENS: None DRAINS: None PREOPERATIVE ANTIBIOTICS: None INDICATIONS: The patient is a 19-year-old who sustained an ankle fracture. ORIF was completed previously. They present today for elective distal interlocking screw removal. The risks, benefits and expected outcomes were discussed in detail. These included but were not limited to: Infection, bleeding, injury to blood vessel or nerve, venous thromboembolism. All questions were answered to their satisfaction. Use of an compounding assistant was necessary throughout the case for patient positioning and safety, soft tissue retraction and closure. PROCEDURE: The patient was placed supine on the operating room table. The lower extremity was prepped and draped in the usual sterile fashion. Local anesthesia was administered. We utilized our previously placed incision for the anterior to posterior distal interlocking screw and opened it longitudinally. Subcutaneous dissection was bluntly taken to the screw head which was fully exposed. The screw was removed intact, without complication. The image intensifier was used to obtain an AP, mortise and lateral view of the ankle, showing the screw has been removed. The wound was irrigated with normal saline. The compounding assistant closed soft tissue with a 3-0 Vicryl deep and a 3-0 Monocryl subcuticular. The compounding assistant placed a soft dressing. Sponge and needle counts were correct x 2. The patient tolerated the procedure well. There were no apparent complications. They were carefully transferred to the hospital bed and taken to the postanesthesia care unit in satisfactory condition. PLAN: The patient will be discharged to home. They may weightbear as tolerates. Ice, ibuprofen and Tylenol will be used as needed for pain. They will follow up in the office in 2 weeks for a wound check.
== END 2024-08-08 08:10 | disposition home or self-care (01) ==
LOC: OR 06:45
PROVIDERS: Visit Provider Orthopaedic Surgery
PROC: (CPT 20680; principal; 2024-08-08 08:00)
DX: Z47.2 Encounter for removal of internal fixation device (principal)
CPT/HCPCS: 20680; 73610; 76000; J3490

== ENCOUNTER 2025-08-01 18:48 | Emergency (ER) | payer BC, SELFPAY ==
--- OUTSIDE RECORDS SUMMARY | 2010-08-11 02:00 | XMS_ITS | Continuity of Care Document ---
Author Organization [facility] Address [address] [address] [place] [address] Phone Care Team Providers Care Child'S Nurse Name Role Phone Prashanth DE LA FUENTE, Unavailable Unavailable Allergies, Adverse Reactions, Alerts Substance Reaction Status Criticality No Known allergies Medications Medication Instructions Dosage Effective Dates (start - stop) Status Comments Chewable Multi Vitamin Tab take 1 by Oral route every day - Active Procedures Procedure Date Offic/outpt E&m New Mod-hi Routine Serum Collection [id number] Results Test Name Date and Time Measure Units Reference Range Abnormal Flag Status Comments Panel Description: Glia(IgG/A)+IgA+T-STREETER Final Immunoglobulin A, Qn, Serum 07:35:00 119 mg/dL 27-195 Final Performed by:Clifford Bullock (1) Deamidated Gliadin Abs, IgA 13:22:00 2 units 0-19 Final Negative 0 - 1 9 Weak Positive 20 - 30 Moderate to Strong Positive >30Performed by:BN (2) Deamidated Gliadin Abs, IgG 13:22:00 3 units 0-19 Final Negative 0 - 1 9 Weak Positive 20 - 30 Moderate to Strong Positive >30Performed by:BN (2) t-Transglutaminas e (tTG) IgA 12:10:00 <2 U/mL 0-3 Final Negative 0 - 3 Weak Positive 4 - 10 Positive >10 . Tissue Transglutaminase (tTG) has been identified as the endomysial antigen. Studies have demonstr- ated that endomysial IgA antibodies have over 99% specificity for gluten sensitive enteropathy.Perfor med by:BN (2) Advance Directives Directive Yes / No Effective Date File Name Resuscitation Not Answered N/A N/A Life Support Not Answered N/A N/A Intubation Not Answered N/A N/A Antibiotics Not Answered N/A N/A IV Fluid Support Not Answered N/A N/A Tube Feed Not Answered N/A N/A Other Directive N/A N/A WARNING:The information contained in this section is historical and is provided for information only and does not constitute a legal document or any assurance that the information is still accurate. Please verify the information with the perez of the legal document before using it for clinical purposes. Encounters Encounter Description Practice Location Reason(s) For Visit Diagnoses Date Provider Providers Copied on Encounter Offic/outpt E&m New Mod-[facility] [address] [address], [place], [place], [id number], [place] tel:[phone] [facility] Abdominal pain (chief complaint) Abd Pain GeneralizedDiarrhea 1 Prashanth DE LA FUENTE . [address] [facility] [address], [place], [place], [id number] , [place]. tel:[phone] Referring Provider: Referral Self, USE FOR SELF REFERRALS. Family History Family Member Type Diagnosis Age At Onset Maternal grandfather Problem (finding) diverticulitis of colon First degree family history Problem (finding) No history of Crohn's Maternal grandfather Problem (finding) Maternal history of diabetes mellitus First degree family history Problem (finding) No Family history of No history of Colon Polyps First degree family history Problem (finding) No history of Ulcerative Colitis Maternal grandfather Problem (finding) GERD First degree family history Problem (finding) No history of Colon Rectal Cancer Payers Payer name Insurance type Covered democrat ID Authoriza tion(s) No Information Social History Type Description Quantity Date Captured Comments Alcohol Use Details Unknown Caffeine Use Details Unknown Tobacco Use Status No Information Smoking Status No Information Sex Male Chief Complaint And Reason For Visit From encounter dated '08/11/2010 08:00'. Abdominal pain (chief complaint) Reason For Referral Reason For Referral No Information History Of Present Illness Encounter Date Complaint History Of Prese nt Illness No Information Functional Status Date Functional Assessmen t No Information Instructions Date Instruction Additional Infor mation No Information Assessments Type Assessment Date No Information Patient Care Teams Name Effective Dates (start - stop) Status Members No Information
--- OUTSIDE RECORDS SUMMARY | 2025-08-01 18:50 | XMS_ITS | Clinical Summary ---
Author Organization [facility] Address [address] [place] [address] Care Team Providers Care Para Machine Operator Name Role Phone Pcp, No Primary Care Provider Unavailabl e Allergies Active AllergyReactionsCriticalityNoted OyxgSanobatjCxtihdkjobePstb40/10/2022 Medications MedicationSigDispense QuantityRefillsLast FilledStart DateEnd DateStatus benzonatate (TESSALON) 200 mg capsule Indications:Sore throatTake 1 Capsule (200 mg) by mouth 3 times daily if needed for Cough. 21 Capsule 3Active albuterol HFA (PRO-AIR; VENTOLIN; PROVENTIL) 90 mcg/actuation inhaler Indications:Acute coughInhale 1-2 Puffs by mouth every 4 hours if needed for Shortness Of Breath or Wheezing. 1 Each 5Active benzonatate (TESSALON) 200 mg capsule Indications:Acute coughTake 1 Capsule (200 mg) by mouth 3 times daily if needed for Cough. 21 Capsule 5Active azithromycin 250 mg tablet Indications:Cough, unspecified typeTake 500 mg (2 tabs) by mouth on day 1, then 250 mg (1 tab) daily for days 2-5. 6 Tablet 5Active predniSONE (DELTASONE) 10 mg tablet Indications:Cough, unspecified typeTake 3 Tablets (30 mg) by mouth once daily with a meal for 2 days, THEN 2 Tablets (20 mg) once daily with a meal for 2 days, THEN 1 Tablet (10 mg) once daily with a meal for 2 days. 12 Tablet /12/2024ExpiredHospital, Clinic, or Other Facility Administered MedicationOrdered DoseRouteFrequencyStart DateEnd DateStatus dexAMETHasone 10 mg/mL injection 10 mg Indications:Laryngitis, acute10 mgOralONE TIME5109/02/2024Ended Active Problems No known active problems Encounters DateTypeDepartmentCare XmctMezufmzkgxt85/29/2025 11:10 AM CSTOffice Visit [facility] [address] [place] [phone] Alondra Eisenberg NP Cough (was seen on 07/03 in and since has lost his voice, will cough so hard he vomits./x 2 weeks. )07/07/20253382Bxrbtl74/25/2025 3:00 PM CSTAncillary Procedure [address] [phone] 07/03/2025 2:30 PM CSTOffice Visit [facility] [address] [place] [phone] Yael Whitley NP Cough (1 week ); loss of voice (Yesterday )07/03/2025Telephone [facility] [address] [place] [phone] Yael Whitley NP Medication Management (benzonatate (TESSALON) 200 mg capsule)07/03/2025Telephone [facility] [address] [place] [phone] Yael Whitley NP Results (spoke with praveen and his mom to give x ray results. pt verbalized understanding and had nofurther questions. was made aware of medications sent in to pharmacy. )07/03/2025Travelfrom Last 3 Months Social History Tobacco UseTypesPacks/DayYears UsedDateSmoking Tobacco: NeverPassive Smoke Exposure: NeverSmokeless Tobacco: Never Tobacco Cessation:Counseling Given: Not Answered Sex and Gender InformationValueDate RecordedSex Assigned at BirthNot on file Legal DcpLvyx2908/15/2020 5:52 PM CSTGender IdentityNot on fileSexual Orientation Not on file Last Filed Vital Signs Vital SignReadingTime TakenCommentsBlood Dmuehqwv830/6607/07/2025 11:22 AM CULINARY ASSISTANT Ebpqg943007/07/2025 11:22 AM JULWbkclwmtkbd41.8 ??C (98.3 ??F)07/07/2025 11:22 AM CSTRespiratory Anrd940009/06/2024 11:22 AM CSTOxygen Uaidoqbptm86%07/07/2025 11:22 AM CSTInhaled Oxygen Concentration--Gpsfqs02 kg (194 lb)07/07/2025 11:22 AM CULINARY ASSISTANT Height--Body Mass Index-- Plan of Treatment Health MaintenanceDue DateLast DoneCommentsTetanus liffpqn8303/26/2015Depression screening for age 12+2016HIV for age 15-HPV series for age 9- 45 (1 - Male 3-dose series)2019Meningococcal series for age 11-21 (1 - 2- dose series)2020BMI (ht and wt on same day) for age 18+2022Hepatitis C screening for age 18-7903/26/2022Hepatitis B series for 19+ (1 of 3 - 19+ 3- dose series)3COVID-19 vaccine series ( - 2024- season)2025 Influenza Vaccine (#1)2025Pneumococcal series for age 6-49Aged OutNo longer eligible based on patient's age to complete this topic Procedures Procedure NamePriorityDate/TimeAssociated DiagnosisCommentsXR CHEST 2 VIEWS PA AND FYBNKZFNNXP24/25/2025 3:03 PM CULINARY ASSISTANT Acute cough from Last 3 Months Results * XR CHEST 2 VIEWS PA AND LATERAL (07/03/2025 3:03 PM CULINARY ASSISTANT)Anatomical Region LateralityModalityCHEST, THORAX, Lung, HEARTComputed RadiographySpecimen (Source)Anatomical Location / LateralityCollection Method / VolumeCollection TimeReceived Time07/03/2025 3:20 PM CULINARY ASSISTANT Narrative 07/03/2025 3:20 PM CULINARY ASSISTANT For Patients: As a result of the Cures Act, medical imaging exams and procedure reports are released immediately into your electronic medical record. You may view this report before your referring provider. If you have questions, please contact your health care provider. Indication: Acute cough Technique: Chest 2 views Comparison: None Findings/Impression: Cardiovascular and mediastinum: ??Heart size and vasculature are normal in caliber and appearance. ??Mediastinum is within normal limits. Lungs and pleural spaces: ??Lungs are clear. ??No sign of infiltrate or mass. ??No sign of pleural effusion. ??No pneumothorax. Mild bronchial wall thickening which can be seen in bronchitis or reactive airways disease. Bones and soft tissues: ??Moderate gastric distention. Dictated by Roman Figueroa MD @ 07/03/2025 3:20:39 PM (Electronically Signed) Procedure Note Roman Figueroa MD - 07/03/2025 For Patients: As a result of the Cures Act, medical imagingexams and procedure reports are released immediately into your electronicmedical record. You may view this report before your referring provider.If you have questions, please contact your health care provider. Indication: Acute cough Technique: Chest 2 views Comparison: None Findings/Impression: Cardiovascular and mediastinum: Heart size and vasculature are normal incaliber and appearance. Mediastinum is within normal limits. Lungs and pleural spaces: Lungs are clear. No sign of infiltrate ormass. No sign of pleural effusion. No pneumothorax. Mild bronchial wallthickening which can be seen in bronchitis or reactive airways disease. Bones and soft tissues: Moderate gastric distention. Dictated by Roman Figueroa MD @ 07/03/2025 3:20:39 PM (Electronically Signed) Authorizing ProviderResult TypeResult StatusGrmarcelo Whitley NPGENERAL IMAGING Final Result from Last 3 Months Insurance * Guarantor: Linda Lerner TypeRelation to PatientDate of BirthPhone Billing AddressPersonal/VshgrkNujn[address] [place] [address] * Guarantor: Neli Lerner TypeRelation to PatientDate of PhoneBilling AddressPersonal/SwvszuZfpgnj93/30/1976 [address] [facility] [place] [address] Care Teams Team MemberRelationshipSpecialtyStart DateEnd Date PcpAshlyn PCP - General08/18/21
[2025-08-01 19:13] VITALS: BP 135/83; PULSE 90; RESP 18; TEMP 36.7; O2SAT 99; BMI 26.4
--- NOTE | 2025-08-01 22:02 | CRLHL7_ITS ---
For Patients: As a result of the Century Cures Act, medical imaging exams and procedure reports are released immediately into your electronic medical record. You may view this report before your referring provider. If you have questions, please contact your health care provider. INDICATION: Pulmonary embolism (PE) suspected. Cough and hemoptysis with history of factor 5 Leiden. TECHNIQUE: CT chest PE was acquired with 95 cc Isovue 370 IV contrast. Multiplanar reformats performed including 3D MIP reconstructions. COMPARISON: Chest x-ray 07/03/2025. FINDINGS: Heart and vasculature: No pulmonary embolism identified. Main pulmonary artery is normal in caliber. No thoracic aortic aneurysm. Mild cardiomegaly. No pericardial effusion. No CT evidence of acute right heart strain. Lungs and pleura: No focal consolidation. No pleural effusion or pneumothorax. Mild bronchial wall thickening. Lymph nodes/mediastinum: No suspicious lymphadenopathy. Chest wall: No suspicious chest wall mass or fluid collection. Upper abdomen: No acute abnormality. Bones: No acute abnormality. IMPRESSION: 1. No pulmonary embolism. 2. Mild cardiomegaly. 3. Mild bronchial wall thickening may reflect sequelae of nonspecific infectious/inflammatory process. Please note that all CT scans at this facility use dose modulation, iterative reconstruction, and/or weight-based dosing when appropriate to reduce radiation dose to as low as reasonably achievable. Dictated by Ford Bailey MD @ 08/01/2025 11:21:40 PM (Electronically Signed)
--- NOTE | 2025-08-01 22:30 | ED_ITS ---
HPI - General Adult General Date Seen: 08/01/25 Chief complaint: Unspecified Complaint, Adult Stated complaint: throwing up blood Time Seen by Provider: 08/01/25 21:53 Source: patient Mode of arrival: ambulatory Limitations: no limitations History of Present Illness HPI narrative: Patient is a 20-year-old male with a history of factor 5 Leiden presenting to the emergency department for a cough and hemoptysis. States for the past 6 weeks he has been dealing with a cough. Was previously on amoxicillin. That did not help at all he states. States he is coughing frequently throughout the day. States he will cough so much that he will vomit. He states he has severe coughing attack after almost every meal but his coughing fits do not occur only after meals. They were concerned today because coughed and had a small amount of hemoptysis they state. States it was some blood-tinged sputum. No history of blood clots bili does have factor 5 Leiden. Denies chest pain, shortness of breath, fevers, chills, lightheadedness, dizziness, weakness, numbness. No other concerns noted at this time. Related Data Previous Rx's ?Medication ?Instructions ?Recorded albuterol sulfate 90 mcg/actuation 2 inh inhalation Q4 H PRN #1 ea 08/01/25 breath activated powder inhaler Allergies Allergy/AdvReac Type Severity Reaction Status Date / Time Penicillins Allergy Rash Verified 08/01/25 19:14 Review of Systems Status of ROS: Reports: 10 or more systems reviewed and unremarkable except as noted in History and below [facility] Medical History Factor 5 Leiden mutation, heterozygous ?D68.51 - Activated protein C resistance (ICD-10) Surgical History Status post hardware removal (08/08/24) ?Z98.890 - Other specified postprocedural states (ICD-10) History of open reduction and internal fixation (ORIF) procedure (10/07/23) ?Z98.890 - Other specified postprocedural states (ICD-10) H/O adenoidectomy ?Z90.89 - Acquired absence of other organs (ICD-10) Social History Smoking Status: Never smoker Second hand tobacco smoke exposure: No How often do you have a drink containing alcohol: never AUDIT-C Alcohol total score: 0 Non-prescribed substance use: denies use Caffeine: Yes (pop) Exam Narrative: Exam Narrative: Const: Well-nourished, Well-developed, in mild distress Eyes: PERRL, no conjunctival injection, and symmetrical lids HENT: Atraumatic external nose and ears. Moist mucous membranes. Neck: Symmetric, trachea midline, No thyromegaly. CVS: RRR, No murmurs or gallops. Peripheral pulses 2+ and equal in all extremities RESP: Unlabored respiratory effort. Clear to auscultation bilaterally. GI: Nontender/Nondistended, No rebound or guarding. MSK:Extremities w/o deformity, Normal Active ROM Skin: Warm, Dry. No rashes or lesions. Neuro: Normal Muscle tone, No focal neurological deficits. Psych: Awake, Alert, & Oriented x3. Appropriate mood and affect. Const: Vital Signs, click to edit/add: Vital Signs - 24 hr 08/01/25 19:13 08/01/25 22:39 Temperature 98.0 F 98.0 F Pulse Rate [Right Pulse Oximeter] 90 85 Respiratory Rate 18 18 Blood Pressure [Ri ght Upper Arm] 135/83 125/74 Pulse Oximetry 99 99 Oxygen Delivery Me thod Room Air Room Air Course Vital Signs Vital signs: Initial Vital Signs Temperature 98.0 F 08/01/25 19:13 Temperature Source Temporal Artery Scan 08/01/25 19:13 Pulse Rate 90 08/01/25 19:13 Respiratory Rate 18 08/01/25 19:13 Blood Pressure 135/83 08/01/25 19:13 Blood Pressure Mean 100 08/01/25 19:13 Blood Pressure Position Sitting 08/01/25 19:13 Pulse Oximetry 99 08/01/25 19:13 Oxygen Delivery Method Room Air 08/01/25 19:13 Vital Signs Temperature 98.0 F 08/01/25 19:13 Pulse Rate 90 08/01/25 19:13 Respiratory Rate 18 08/01/25 19:13 Blood Pressure 135/83 08/01/25 19:13 Pulse Oximetry 99 08/01/25 19:13 Oxygen Delivery Method Room Air 08/01/25 19:13 Temperature 98.0 F 08/01/25 22:39 Pulse Rate 85 08/01/25 22:39 Respiratory Rate 18 08/01/25 22:39 Blood Pressure 125/74 08/01/25 22:39 Pulse Oximetry 99 08/01/25 22:39 Oxygen Delivery Method Room Air 08/01/25 22:39 Medical Decision Making MDM Narrative Medical decision making narrative: Patient is a 20-year-old male presenting to the emergency department for a cough. Considering along the cough has been going on for the seems likely to be chronic bronchitis. The hemoptysis is most likely just from the the chronic coughing but with his history I do think it is important to rule out a PE. I spoke to him is father about radiation follow-up with CTA and why I recommended. They are agreeable to it. CTA PE study will be ordered. CTA reviewed by myself and the radiologist shows no acute PE. There is some mild bronchial wall thickening which may reflect infectious or inflammatory process. Considering the patient's history He has chronic bronchitis. I informed him steroids no antibiotics were not beneficial. With the amount of coughing he has been having though I will prescribe him an inhaler to see if that helps. Will also give him a paper script for a spacer. MS father are agreeable to this plan. He will be discharged. Discharge Plan Discharge Clinical Impression: Chronic bronchitis Qualifiers: Chronic bronchitis type: unspecified Qualified Code(s): J42 - Unspecified chronic bronchitis Patient Disposition: Home, Self-Care Condition: Stable Instructions: How to Use a Metered-Dose Inhaler (DC) Additional Instructions: When using the inhaler make sure to use a spacer as this will help get the medicine into your lungs. I do recommend following up with the primary care provider. Return to emergency department for new or worsening symptoms. Prescriptions: New albuterol sulfate 90 mcg/actuation aerosol powdr breath activated 2 inh inhalation Q4H PRNQty: 1 0RF Follow Up/Referrals: Provider,Not a Local [Primary Care Provider, Family Practice] Stand Alone Forms: [employer] Info Instructions
[2025-08-01 22:39] VITALS: BP 125/74; PULSE 85; RESP 18; TEMP 36.7; O2SAT 99
== END 2025-08-01 23:45 | disposition home or self-care (01) ==
PROVIDERS: Emergency Provider Student in an Organized Health Care Education/Training Program
DX: J42 Unspecified chronic bronchitis (principal); D68.51 Activated protein C resistance; Z79.51 Long term (current) use of inhaled steroids
CPT/HCPCS: 71275; 99283; 99284; 99285; Q9967